=== PATIENT | male | born 2000 | race Caucasian/White ===

== ENCOUNTER 2024-12-21 23:56 | Emergency (ER) | payer OTHER ==
[2024-12-22 01:53] LABS: Absolute Basophils 0.1 K/uL (0-0.5); Absolute Eosinophils 0.1 K/uL (0-0.5); Absolute Lymphocytes (CBC) 3.3 K/uL (0.7-4.9); Absolute Monocytes 0.6 K/uL (0.1-1.3); Basophils % 0.7 % (0-1.3); Eosinophils % 1.4 % (0-4.4); Hematocrit 39.5 % (39.6-49.0); Hemoglobin 13.4 g/dL (13.6-17.9); Lymphocytes % 32.6 % (15.3-44.8); MCH 26.1 pg (27.0-35.0); MCHC 33.9 g/dL (32.0-36.0); MCV 77.1 fL (80-100); MPV 9.5 fL (7.6-11.3); Monocytes % 6.3 % (3.3-12.3); Nucleated Red Blood Cells % 0.3 % (0-0); Platelets 209 thou/uL (152-406); RBC Red Blood Cell Count 5.13 M/uL (4.33-5.43); Red Cell Distribution Width 15.7 % (12.1-15.2)
[2024-12-22 02:08] LABS: Albumin 3.8 g/dL (3.4-5.0); Albumin/Globulin Ratio 1.2 (1.1-1.8); Anion Gap 7.9 mEq/L (5.0-15.0); Bilirubin Total 0.5 mg/dL (0.2-1.0); Globulin 3.1 g/dL (2.3-3.5); Potassium 3.9 mEq/L (3.5-5.1); Protein, Total 6.9 g/dL (6.4-8.2)
[2024-12-22] MEDS ORDERED: ACETAMINOPHEN 500 MG TAB ONE (02:32)
--- NOTE | 2024-12-22 05:46 | ER ---
Nurse's Notes [facility] Name: Isreal Zapata Age: 24 yrs Sex: Male : 2000 Arrival Date: 12/21/2024 Time: 23:56 Bed 18 Private MD: Diagnosis: Abdominal pain, Generalized;Diarrhea, unspecified Presentation: 12/22 00:21 Chief complaint: Patient states: abdominal pain and diarrhea X1 week. Coronavirus lg3 screen: Client denies travel out of the [place] in the last 14 days. At this time, the client does not indicate any symptoms associated with coronavirus-19. Ebola Screen: No symptoms or risks identified at this time. Initial Sepsis Screen: Does the patient meet any 2 criteria? No. Patient's initial sepsis screen is negative. Does the patient have a suspected source of infection? No. Patient's initial sepsis screen is negative. Risk Assessment: Do you want to hurt yourself or someone else? Patient reports no desire to harm self or others. Onset of symptoms was December 15, 2024. 00:21 Method Of Arrival: Wheelchair lg3 00:21 Acuity: MIRACLE 3 lg3 Triage Assessment: 00:27 General: Appears in no apparent distress. comfortable, Behavior is calm, cooperative. lg3 Pain: Denies pain. EENT: No deficits noted. No signs and/or symptoms were reported regarding the EENT system. Neuro: No deficits noted. Fraser Agitation-Sedation Scale (RASS): 0 - Alert and Calm Level of Consciousness is awake, alert, obeys commands, Oriented to person, place, time, situation. Cardiovascular: No deficits noted. Denies chest pain, shortness of breath, Capillary refill < 3 seconds Clubbing of nail beds is absent JVD is absent Patient's skin is warm and dry. Respiratory: Airway is patent Respiratory effort is even, unlabored, Respiratory pattern is regular, symmetrical. GI: Abdomen is round non-distended, obese, Reports diarrhea. : No signs and/or symptoms were reported regarding the genitourinary system. Derm: No deficits noted. No signs and/or symptoms reported regarding the dermatologic system. Skin is intact, is healthy with good turgor, Skin is dry, Skin is normal, Skin temperature is warm. Musculoskeletal: No deficits noted. No signs and/or symptoms reported regarding the musculoskeletal system. Circulation, motion, and sensation intact. Range of motion: intact in all extremities. Historical: - Allergies: 00:27 No Known Allergies; lg3 - Home Meds: 00:27 ezetimibe 10 mg oral tablet [Active]; bupropion HCl 300 mg Oral Tablet, Extended lg3 Release 24 hr [Active]; aripiprazole 25 mg oral tablet [Active]; - PMHx: 00:27 Hypertensive disorder; muscular dystrophy; COPD; lg3 - PSHx: 00:27 fundlplycation; G tube; Myringotomy and insertion of tympanic ventilation tube; spinal; lg3 trach placement; muscle biopsy; - Immunization history:: Adult Immunizations up to date. - Infectious Disease History:: Denies. - Social history:: Smoking status: Patient denies any tobacco usage or history of. Patient/guardian denies using alcohol, street drugs. Screenin:39 [facility] ED Fall Risk Assessment (Adult) History of falling in the last 3 months, rg5 including since admission No falls in past 3 months (0 pts) Confusion or Disorientation No (0 pts) Intoxicated or Sedated No (0 pts) Impaired Gait Yes (1 pt) Mobility Assist Device Used Yes (1 pt) Altered Elimination Yes (1 pt) Score/Fall Risk Level 3 or more points = High Risk Oriented to surroundings, Maintained a safe environment, Hourly rounding (assess needs \T\ fall precautionary measures) done. Abuse screen: Denies threats or abuse. Nutritional screening: No deficits noted. Tuberculosis screening: No symptoms or risk factors identified. Assessment: 00:39 General: Appears in no apparent distress. comfortable, Behavior is calm, cooperative, rg5 appropriate for age. Pain: Complains of pain in abdomen. Neuro: Level of Consciousness is awake, alert, obeys commands, Oriented to person, place, time, situation. Cardiovascular: Patient's skin is warm and dry. Respiratory: Airway is patent via trache Trachea midline Respiratory effort is even, Respiratory pattern is regular, symmetrical. GI: Reports lower abdominal pain, diarrhea. : No signs and/or symptoms were reported regarding the genitourinary system. EENT: No deficits noted. Derm: Skin is intact, Skin is dry, Skin is normal. Musculoskeletal: Circulation, motion, and sensation intact. Range of motion: intact in all extremities. 01:35 Reassessment: No changes from previously documented assessment. Patient and/or family rg5 updated on plan of care and expected duration. Pain level reassessed. 02:36 Reassessment: No changes from previously documented assessment. Patient and/or family rg5 updated on plan of care and expected duration. Pain level reassessed. 03:48 Reassessment: No changes from previously documented assessment. Patient and/or family rg5 updated on plan of care and expected duration. Pain level reassessed. General: Appears in no apparent distress. comfortable, Behavior is calm, cooperative, appropriate for age, sleeping. 04:30 Reassessment: No changes from previously documented assessment. Patient and/or family rg5 updated on plan of care and expected duration. Pain level reassessed. Patient is alert, oriented x 3, equal unlabored respirations, skin warm/dry/pink. 05:20 Reassessment: No changes from previously documented assessment. Patient and/or family rg5 updated on plan of care and expected duration. Pain level reassessed. Patient is alert, oriented x 3, equal unlabored respirations, skin warm/dry/pink. Vital Signs: 00:21 BP 123 / 90; Pulse 80; Resp 16; Temp 97.8(O); Pulse Ox 100% on trach; Weight 108.86 kg lg3 (R); Height 5 ft. 2 in. (R); Pain 0/10; 01:30 BP 124 / 73; Pulse 81; Resp 18; Pulse Ox 97% ; Pain 0/10; rg5 02:35 BP 116 / 69; Pulse 83; Resp 19 S; Pulse Ox 98% ; Pain 3/10; rg5 03:00 BP 123 / 59; Pulse 70; Resp 18; Pulse Ox 95% on R/A; Pain 0/10; rg5 00:21 Body Mass Index 43.90 (108.86 kg, 157.48 cm) lg3 00:21 Pain Scale: Adult lg3 01:30 Pain Scale: Adult rg5 02:35 Pain Scale: Adult rg5 03:00 Pain Scale: Adult rg5 ED Course: 00:00 Patient arrived in ED. im 00:07 Vik Rendon DO is Attending Physician. ms3 00:27 Triage completed. lg3 00:27 Arm band placed on right wrist. lg3 00:39 Patient has correct armband on for positive identification. Bed in low position. Call rg5 light in reach. Side rails up X 1. Door closed. Noise minimized. Warm blanket given. 00:39 No provider procedures requiring assistance completed. Inserted saline lock: 20 gauge rg5 in right antecubital area, using aseptic technique. Blood collected. Flushed with 10 mL NS. 01:40 Sam Nguyen, RN is Primary Nurse. rg5 02:58 CT Abd/Pelvis - IV Contrast Only In Process Unspecified. EDMS 06:03 IV discontinued, bleeding controlled, No redness/swelling at site. Pressure dressing rg5 applied. 06:04 Provided Education on: post er care. rg5 Administered Medications: 02:35 Drug: Acetaminophen PO 1000 mg PO once Route: PO; rg5 03:50 Follow up: Response: No adverse reaction rg5 Medication: 00:39 VIS not applicable for this client. rg5 Outcome: 05:45 Discharge ordered by MD. ms3 06:03 Discharged to home via wheelchair, rg5 06:03 Condition: stable 06:03 Discharge instructions given to patient, family, Instructed on discharge instructions, follow up and referral plans. Demonstrated understanding of instructions, follow-up care, 06:04 Patient left the ED. rg5 Signatures: Dispatcher [employer] Laura Horta, RN RN lg3 Vik Rendon DO DO ms3 Yamilka La Sam Nguyen, RN RN rg5
--- NOTE | 2024-12-22 05:46 | EDPHYS ---
Physician Documentation [facility] Name: Isreal Zapata Age: 24 yrs Sex: Male : 2000 Arrival Date: 12/21/2024 Time: 23:56 Bed 18 Private MD: ED Physician Vik Rendon HPI: 12/22 02:34 This 24 yrs old Male presents to ER via Wheelchair with complaints of Diarrhea, ms3 Abdominal Cramping. 02:34 24-year-old male with past medical history of hypertension, muscular dystrophy, COPD ms3 presents to the emergency department for diarrhea and stomach cramps that been ongoing for the approximately 1 week. Patient states symptoms have become worse over the last 2 days. Patient denies recent antibiotic use. Patient denies pain during interview.. Historical: - Allergies: 00:27 No Known Allergies; lg3 - Home Meds: 00:27 ezetimibe 10 mg oral tablet [Active]; bupropion HCl 300 mg Oral Tablet, Extended lg3 Release 24 hr [Active]; aripiprazole 25 mg oral tablet [Active]; - PMHx: 00:27 Hypertensive disorder; muscular dystrophy; COPD; lg3 - PSHx: 00:27 fundlplycation; G tube; Myringotomy and insertion of tympanic ventilation tube; spinal; lg3 trach placement; muscle biopsy; - Immunization history:: Adult Immunizations up to date. - Infectious Disease History:: Denies. - Social history:: Smoking status: Patient denies any tobacco usage or history of. Patient/guardian denies using alcohol, street drugs. ROS: 02:34 Constitutional: Negative for fever, and chills. Cardiovascular: Negative for chest ms3 pain, and palpitations. Respiratory: Negative for shortness of breath, cough, wheezing, and pleuritic chest pain, 02:34 MS/Extremity: Negative for injury and deformity, Skin: Negative for injury, rash, and discoloration, 02:34 Abdomen/GI: Positive for abdominal pain, diarrhea, Exam: 02:34 Constitutional: This is a well developed, well nourished patient who is awake, alert, ms3 and in no acute distress. Cardiovascular: Regular rate and rhythm with a normal S1 and S2. No gallops, murmurs, or rubs. Normal PMI, no JVD. No pulse deficits. Respiratory: Lungs have equal breath sounds bilaterally, clear to auscultation and percussion. No rales, rhonchi or wheezes noted. No increased work of breathing, no retractions or nasal flaring. Abdomen/GI: Soft, non-tender, with normal bowel sounds. No distension or tympany. No guarding or rebound. No evidence of tenderness throughout. Skin: Warm, dry with normal turgor. Normal color with no rashes, no lesions, and no evidence of cellulitis. Vital Signs: 00:21 BP 123 / 90; Pulse 80; Resp 16; Temp 97.8(O); Pulse Ox 100% on trach; Weight 108.86 kg lg3 (R); Height 5 ft. 2 in. (R); Pain 0/10; 01:30 BP 124 / 73; Pulse 81; Resp 18; Pulse Ox 97% ; Pain 0/10; rg5 02:35 BP 116 / 69; Pulse 83; Resp 19 S; Pulse Ox 98% ; Pain 3/10; rg5 03:00 BP 123 / 59; Pulse 70; Resp 18; Pulse Ox 95% on R/A; Pain 0/10; rg5 00:21 Body Mass Index 43.90 (108.86 kg, 157.48 cm) lg3 00:21 Pain Scale: Adult lg3 01:30 Pain Scale: Adult rg5 02:35 Pain Scale: Adult rg5 03:00 Pain Scale: Adult rg5 MDM: 00:28 Medical Screening Exam initiated ms3 02:34 Differential diagnosis: Nonspecific abd pain, gastritis, viral gastroenteritis, ms3 gastroenteritis. 05:45 Data reviewed: vital signs, nurses notes, lab test result(s), radiologic studies, and ms3 as a result, I will discharge patient. I considered the following discharge prescriptions or medication management in the emergency department Medications were administered in the Emergency Department. See MAR. Historians other than the Patient: Parent: Patient's mother. Counseling: I had a detailed discussion with the patient and/or guardian regarding the historical points, exam findings, and any diagnostic results supporting the discharge/admit diagnosis, lab results, radiology results, the need for outpatient follow up, to return to the emergency department if symptoms worsen or persist or if there are any questions or concerns that arise at home. Special discussion: Based on the patient's Hx, exam, and Dx evaluation, there is no indication for emergent surgery or inpatient Tx. It is understood by the patient/guardian that if the Sx's persist or worsen they need to return immediately for re-evaluation. ED course: Discussed labs and CT findings with the patient. Patient to follow-up with primary care physician 2 to 3 days. Patient understands and agrees with plan. All questions were answered. Return precautions discussed include worsening symptoms, or any other concerns.. 12/22 00:28 Order name: CBC with Diff; Complete Time: 02:12 ms3 12/22 00:28 Order name: CMP; Complete Time: 02:12 ms3 12/22 00:28 Order name: CT Abd/Pelvis - IV Contrast Only ms3 12/22 00:28 Order name: IV Saline Lock; Complete Time: 01:45 ms3 12/22 00:28 Order name: Labs collected and sent; Complete Time: 01:46 ms3 Administered Medications: 02:35 Drug: Acetaminophen PO 1000 mg PO once Route: PO; rg5 03:50 Follow up: Response: No adverse reaction rg5 Disposition Summary: 12/22/24 05:45 Discharge Ordered Notes: Location: Home ms3 Condition: Stable ms3 Diagnosis - Abdominal pain, Generalized ms3 - Diarrhea, unspecified ms3 Followup: ms3 - With: Private Physician - When: 2 - 3 days - Reason: Recheck today's complaints Discharge Instructions: - Discharge Summary Sheet ms3 - Abdominal Pain, Adult ms3 - Food Choices to Help Relieve Diarrhea, Adult ms3 - Diarrhea, Adult ms3 Forms: - Medication Reconciliation Form ms3 - Antibiotic Education ms3 - Prescription Opioid Use ms3 - Patient Portal Instructions ms3 - Leadership Thank You Letter ms3 Signatures: Dispatcher [employer] EDLaura Kelly, RN RN lg3 Vik Rendon DO DO ms3 Sam Nguyen, RN RN rg5 Corrections: (The following items were deleted from the chart) 00:29 00:29 CBC+H.LAB.BRZ ordered. EDMS EDMS 00:29 00:29 COMPREHENSIVE METABOLIC PANEL+C.LAB.BRZ ordered. EDMS EDMS 00:29 00:29 Abdomen Pelvis W Con+CT.RAD.BRZ ordered. EDMS EDMS 02:35 02:34 Constitutional: This is a well developed, well nourished patient who is awake, ms3 alert, and in no acute distress. Cardiovascular: Regular rate and rhythm with a normal S1 and S2. No gallops, murmurs, or rubs. Normal PMI, no JVD. No pulse deficits. Respiratory: Lungs have equal breath sounds bilaterally, clear to auscultation and percussion. No rales, rhonchi or wheezes noted. No increased work of breathing, no retractions or nasal flaring. Abdomen/GI: Soft, non-tender, with normal bowel sounds. No distension or tympany. No guarding or rebound. No evidence of tenderness throughout. Skin: Warm, dry with normal turgor. Normal color with no rashes, no lesions, and no evidence of cellulitis. MS/ Extremity: Pulses equal, no cyanosis. Neurovascular intact. Full, normal range of motion. ms3
--- NOTE | 2024-12-22 06:06 | RAD REPORT ---
CLINICAL HISTORY: Diarrhea, abdominal pain. COMPARISON: None. TECHNIQUE: CT ABDOMEN PELVIS WITH IV CONTRAST on 12/22/2024 12:28 AM CDT This exam was performed according to our departmental dose-optimization program, which includes autom ated exposure control, adjustment of the mA and/or kV according to patient size and/or use of iterative reconstruction technique. FINDINGS: Lower lungs are clear. Abdomen: Liver is fatty in attenuation. There is no biliary dilatation. Gallbladder is normal in appe arance. Spleen is prominent. Pancreas is unremarkable. Adrenal glands are normal. There is an indeterminate upper pole left renal mass measuring 2.5 cm. Mid pole left renal cyst measures 2.4 cm. Right kidney contains a 2 mm lower pole calculus. Abdominal aorta is normal in course and caliber without aneurysm. There is no free air. There is no r etroperitoneal adenopathy. Pelvis: There is no bowel obstruction. Urinary bladder is unremarkable. There is no free fluid. Appen shiraz is normal. Skeleton: There are no acute osseous findings. No suspicious bony lesions. 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 IMPRESSION: No definite acute inflammatory process. Indeterminate left renal mass. Recommend ultrasound. Electronically signed by: Waylon Aguilar MD 12/22/2024 05:15 AM CDT RP Due to temporary technical issues with the PACS/MOGL reporting system, reports are being bob d by the in-house radiologist without review as a courtesy to ensure prompt reporting the interpreting radiologist is fully responsible for the content of the report. Transcribed Date/Time: 12/22/2024 6:06 AM
[2024-12-22 06:08] VITALS: TEMP 97.8
[2024-12-22 06:14] VITALS: BP 123/59; O2SAT 95
== END 2024-12-22 06:04 | disposition home or self-care (01) ==
LOC: ER 23:56
DX: R10.84 Generalized abdominal pain (principal); R19.7 Diarrhea, unspecified
CPT/HCPCS: 85025; 36415; 80053; 74177; 99284; Q9967